=== PATIENT | male | born 1995 | race Caucasian/White ===

== ENCOUNTER 2019-12-11 03:45 | Emergency (ER) | payer SELFPAY ==
[2019-12-11 03:45] VITALS: BP 128/63; PULSE 75; RESP 20; O2SAT 98
[2019-12-11 04:11] VITALS: TEMP 36.9
[2019-12-11] MEDS: LIDOCAINE HCL 1% LOCAL INJ 20 ML VIAL (04:15)
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
[2019-12-11] MEDS: NEOMYCIN/POLYMYXIN/BACITRACIN OINTMENT PACKET 1 PACKET TOPICAL (04:37)
== END 2019-12-11 04:43 | disposition home or self-care (01) ==
PROVIDERS: Emergency Provider Emergency Medicine; PCP Internal Medicine
DX: S01.01XA Laceration without foreign body of scalp, initial encounter (principal); Y04.0XXA Assault by unarmed brawl or fight, initial encounter
CPT/HCPCS: 12052; 99282

== ENCOUNTER 2023-06-05 13:23 | Outpatient (CLI) | payer OTHER, SELFPAY ==
--- NOTE | ~2023-06-05 | MR_ITS ---
EXAMINATION: MR abdomen wo/w con DATE: 06/05/2023 14:18 INDICATION: Right lobe liver mass TECHNIQUE: Magnetic resonance imaging (MRI) of the abdomen was performed without and with 20 mL Multi amanda intravenous contrast. Sequences included coronal T2-weighted SS-FSE, coronal and axial FS 2D-F IESTA, axial STIR FSE, axial T2-weighted SS-FSE, axial T2-weighted FS SS-FSE, axial diffusion-weighte d SE, axial dual-echo T1-weighted FSPGR, and axial and coronal T1-weighted LAVA. Postcontrast axial T 1-weighted LAVA images were obtained in a time course. Postcontrast coronal T1-weighted LAVA images w ere obtained. COMPARISON: None. FINDINGS: Heart size is normal. No pericardial or pleural effusion. There are 4 hepatic hemangiomas characteriz ed by increased T2 signal of less than simple fluid intensity with lobular margins and with periphera l puddling of contrast isointense to the aorta which progressively fills in on delayed imaging. In th e right hepatic lobe there is a more cephalad hemangioma located near the upper pole of the right kid balaji measures 1.5 cm in maximal diameter with a larger hemangioma located near the lower pole measures up to 3.4 cm in maximal diameter. The 2 hemangiomas in the lateral segment of the left hepatic lobe each measure 1.5 cm maximal diameter. Spleen, pancreas, bilateral adrenal glands and kidneys are norm al. No pathologically enlarged abdominal lymphadenopathy. Bones are unremarkable with normal marrow s ignal throughout. IMPRESSION: 1. 4 hepatic hemangiomas, the largest in the right hepatic lobe measuring 3.4 cm. Reviewed, dictated and finalized at location A. IMPRESSION: 1. 4 hepatic hemangiomas, the largest in the right hepatic lobe measuring 3.4 c m.
== END 2023-06-05 13:24 ==
LOC: MICIMG 13:26
PROVIDERS: PCP Internal Medicine; Visit Provider Internal Medicine
DX: D18.03 Hemangioma of intra-abdominal structures (principal); R16.0 Hepatomegaly, not elsewhere classified
CPT/HCPCS: 74183; A9577